=== PATIENT | female | born 1995 | race Caucasian/White ===

== ENCOUNTER → 2024-09-11 12:25 | Outpatient (REF) | payer BC, SELFPAY | LOC: CPAP 12:25 | PROVIDERS: ATTENDING PHYSICIAN Nurse Practitioner Family | DX: Z34.90 Encounter for supervision of normal pregnancy, unspecified, unspecified trimester (principal); Z11.3 Encounter for screening for infections with a predominantly sexual mode of transmission | CPT/HCPCS: 87491; 87591 ==

== ENCOUNTER → 2024-09-16 10:05 | Outpatient (REF) | payer BC, SELFPAY ==
[2024-09-16 11:06] LABS: % Basophils 0.5 % (0-2); % Eosinophils 0.6 % (0-6); % Immature Granulocytes 0.4 % (0-0.5); % Lymphocytes 20.5 % (20.5-51.1); % Monocytes 5.8 % (1.7-9.3); % Neutrophils 72.2 % (42.2-75.2); Absolute Basophils 0.1 10^3/uL (0-0.2); Absolute Eosinophils 0.1 10^3/uL (0-0.7); Absolute Lymphocytes 2.3 10^3/uL (1.2-3.4); Absolute Monocytes 0.7 10^3/uL (0.1-0.6); Hematocrit 34.6 % (37.0-47.0); Mean Corp Hgb Conc. 34.7 g/dL (33.0-37.0); Mean Corpuscular Hgb 28.8 pg (27.0-31.0); Mean Platelet Volume 11.6 fL (7.4-10.4); Nucleated Red Blood Cells % 0 %; Platelet Count 205 10^3/uL (130-400); Red Blood Cell Count 4.17 10^6/uL (4.20-5.40); Red Cell Dist. Width 13.6 % (11.5-14.5); White Blood Cell Count 11.1 10^3/uL (4.8-10.8)
[2024-09-16 11:08] LABS: Urine Albumin 1+ (Neg - Trace); Urine Bilirubin Negative (Negative); Urine Character Clear (Clear); Urine Color Yellow; Urine Glucose Negative (Negative); Urine Ketone Negative (Negative); Urine Leukocyte Negative (Negative); Urine Nitrite Negative (Negative); Urine Occult Blood Negative (Negative); Urine Specific Gravity 1.015 (<1.030); Urine Urobilinogen Negative (Neg - 1+)
[2024-09-16 12:08] LABS: Urine Bacteria Few (Negative); Urine Red Blood Cell 0-2 /HPF (0-2); Urine White Cell 0-2 /HPF (0-5)
[2024-09-16 12:24] LABS: TSH Reflex To Free T4 4.82 uIU/ml (0.47-4.68)
[2024-09-16 12:55] LABS: Free T4 1.16 ng/dl (0.78-2.19)
[2024-09-16 13:37] LABS: HIV Combo Negative (Negative)
[2024-09-16 14:21] LABS: Hepatitis B Surface Antigen Negative (Negative)
[2024-09-16 14:39] LABS: Hepatitis B Core Ab, Total Negative (Negative); Hepatitis B Surface Antibody Negative; Hepatitis C Antibody Negative (Negative)
[2024-09-18 19:41] LABS: Rubella Negative
== END ==
LOC: REG 10:05
PROVIDERS: ATTENDING PHYSICIAN Nurse Practitioner Family; FAMILY PHYSICIAN Nurse Practitioner Family
DX: Z32.01 Encounter for pregnancy test, result positive (principal); Z31.430 Encounter of female for testing for genetic disease carrier status for procreative management
CPT/HCPCS: 36415; 81003; 81015; 81220; 81243; 83036; 84439; 84443; 84702; 85025; 86704; 86706; 86762; 86780; 86803; 86850; 86900; 86901; 87086; 87340; 87389

== ENCOUNTER → 2024-12-19 13:32 | Outpatient (REF) | payer BC, SELFPAY | LOC: PNTC 13:32 | PROVIDERS: ATTENDING PHYSICIAN Obstetrics & Gynecology | DX: Z34.90 Encounter for supervision of normal pregnancy, unspecified, unspecified trimester (principal) | CPT/HCPCS: 76805; 76817 ==

== ENCOUNTER → 2025-01-05 17:45 | Outpatient (REF) | payer BC, SELFPAY | LOC: CLAB 17:45 | PROVIDERS: ATTENDING PHYSICIAN Nurse Practitioner Family | DX: R79.89 Other specified abnormal findings of blood chemistry (principal) | CPT/HCPCS: 36415; 84443 ==

== ENCOUNTER → 2025-01-16 10:39 | Outpatient (REF) | payer BC, SELFPAY ==
[2025-01-16 12:02] LABS: Hematocrit 33.6 % (37.0-47.0); Hemoglobin 11.0 g/dL (12.0-16.0); Mean Corp Hgb Conc. 32.7 g/dL (33.0-37.0); Mean Corpuscular Volume 84.0 fL (81.0-99.0); Nucleated Red Blood Cells % 0 %; Platelet Count 250 10^3/uL (130-400); Red Cell Dist. Width 14.6 % (11.5-14.5)
[2025-01-16 12:16] LABS: 1 Hour after 50gm 97 mg/dl
== END ==
LOC: REG 10:39
PROVIDERS: ATTENDING PHYSICIAN Obstetrics & Gynecology; FAMILY PHYSICIAN Nurse Practitioner Family
DX: Z34.93 Encounter for supervision of normal pregnancy, unspecified, third trimester (principal)
CPT/HCPCS: 36415; 82950; 85025; 86780

== ENCOUNTER → 2025-02-13 08:28 | Outpatient (REF) | payer BC, SELFPAY | LOC: PNTC 08:28 | PROVIDERS: ATTENDING PHYSICIAN Student in an Organized Health Care Education/Training Program | DX: Z34.90 Encounter for supervision of normal pregnancy, unspecified, unspecified trimester (principal) | CPT/HCPCS: 36415; 86850; 86900; 86901; 96372; J2790 ==

== ENCOUNTER → 2025-03-13 11:23 | Outpatient (REF) | payer BC, SELFPAY | LOC: PNTC 11:23 | PROVIDERS: ATTENDING PHYSICIAN Student in an Organized Health Care Education/Training Program | DX: Z34.90 Encounter for supervision of normal pregnancy, unspecified, unspecified trimester (principal); E03.1 Congenital hypothyroidism without goiter | CPT/HCPCS: 76816 ==

== ENCOUNTER → 2025-04-04 17:48 | Outpatient (REF) | payer BC, SELFPAY ==
[2025-04-04 18:28] LABS: Hematocrit 32.1 % (37.0-47.0); Hemoglobin 9.9 g/dL (12.0-16.0); Mean Corp Hgb Conc. 30.8 g/dL (33.0-37.0); Mean Corpuscular Volume 85.8 fL (81.0-99.0); Platelet Count 217 10^3/uL (130-400); Red Cell Dist. Width 14.5 % (11.5-14.5)
[2025-04-04 18:39] LABS: ALT (SGPT) 22 U/L (0-35); AST (SGOT) 26 U/L (14-36); Albumin 3.6 g/dl (3.5-5.0); Alkaline Phosphatase 111 U/L (38-126); Blood Urea Nitrogen 8 mg/dl (7-17); Calcium 8.6 mg/dl (8.4-10.2); Carbon Dioxide 25 mmol/L (22-30); Chloride 104 mmol/L (98-107); Glucose 75 mg/dl (70-99); Potassium 3.9 mmol/L (3.5-5.1); Sodium 132 mmol/L (135-145); Total Protein 7.1 g/dl (6.3-8.2); eGFR > 60.00
[2025-04-04 19:01] LABS: Urine Character Clear (Clear)
[2025-04-04 19:14] LABS: Ferritin 5.8 ng/ml (6.24-137); Urine Red Blood Cell 0-2 /HPF (0-2); Urine Squamous Cell >30 /LPF (Few); Urine White Cell 21-25 /HPF (0-5)
[2025-04-05 09:55] LABS: Glycohemoglobin (HgbA1c) 5.2 % (4.0-5.9)
== END ==
LOC: CLAB 17:48
PROVIDERS: ATTENDING PHYSICIAN Nurse Practitioner Family
DX: Z00.00 Encounter for general adult medical examination without abnormal findings (principal); Z34.93 Encounter for supervision of normal pregnancy, unspecified, third trimester
CPT/HCPCS: 36415; 80053; 81003; 81015; 82728; 82985; 83036; 85027

== ENCOUNTER → 2025-04-10 08:38 | Outpatient (REF) | payer BC, SELFPAY | LOC: CLAB 08:38 | PROVIDERS: ATTENDING PHYSICIAN Obstetrics & Gynecology | DX: Z36.85 Encounter for antenatal screening for Streptococcus B (principal); Z34.90 Encounter for supervision of normal pregnancy, unspecified, unspecified trimester | CPT/HCPCS: 87070 ==

== ENCOUNTER 2025-04-19 13:37 | Outpatient (RCR) | payer BC, OTHER, SELFPAY ==
[2025-04-12 13:45] VITALS: BP 143/80
[2025-04-12] MEDS: VENOFER 110 MG IV (13:54)
[2025-04-12 15:00] VITALS: BP 130/69
[2025-04-19 13:45] VITALS: BP 119/73
[2025-04-19] MEDS: VENOFER 110 MG IV (13:59)
[2025-04-19 15:02] VITALS: BP 128/73
== END 2025-04-29 23:59 | disposition home or self-care (01) ==
LOC: OID 13:37
PROVIDERS: ATTENDING PHYSICIAN Nurse Practitioner Family
DX: D50.8 Other iron deficiency anemias (principal)
CPT/HCPCS: 96365; J1756

== ENCOUNTER 2025-04-24 10:39 | Inpatient (IN) | payer BC, OTHER, SELFPAY ==
[2025-04-24 10:41] VITALS: BMI 31.7
[2025-04-24 10:50] LABS: Hematocrit 33.7 % (37.0-47.0); Hemoglobin 11.2 g/dL (12.0-16.0); Mean Corp Hgb Conc. 33.2 g/dL (33.0-37.0); Mean Corpuscular Volume 79.9 fL (81.0-99.0); Platelet Count 217 10^3/uL (130-400); Red Cell Dist. Width 18.1 % (11.5-14.5)
[2025-04-24] MEDS: ANCEF 10 IV (10:54)
[2025-04-24] MEDS: TYLENOL 975 MG PO (10:54)
[2025-04-24] MEDS: BICITRA 30 ML PO (10:54)
[2025-04-24 11:16] VITALS: BP 140/57
[2025-04-24] MEDS: METHERGINE INJECTION 0.2 MG IM (13:59)
[2025-04-24] MEDS: CYTOTEC 800 MCG RECTAL (14:00)
[2025-04-24 14:28] LABS: Hematocrit 31.3 % (37.0-47.0); Hemoglobin 10.0 g/dL (12.0-16.0); Platelet Count 210 10^3/uL (130-400)
[2025-04-24 14:41] LABS: INR 1.00; PT 13.5 Sec (11.4-14.6)
[2025-04-24 14:42] LABS: APTT 24.5 Sec (23.4-35.0); Fibrinogen 340 MG/DL (199-459)
[2025-04-24] MEDS: TORADOL IV ×2 (15:27→21:00)
[2025-04-24] MEDS: COLACE 100 MG PO (20:20)
[2025-04-25] MEDS: TYLENOL 650 MG PO ×3 (00:37→19:51)
[2025-04-25] MEDS: TORADOL 15 MG IV ×2 (03:08→08:49)
[2025-04-25] MEDS: FLUSH (NSS) 3 FLUSH IV (03:09)
[2025-04-25] MEDS: SYNTHROID 50 MCG PO (06:04)
[2025-04-25 07:17] LABS: Hematocrit 22.0 % (37.0-47.0); Hemoglobin 7.3 g/dL (12.0-16.0); Mean Corp Hgb Conc. 33.2 g/dL (33.0-37.0); Mean Corpuscular Volume 80.3 fL (81.0-99.0); Platelet Count 159 10^3/uL (130-400); Red Cell Dist. Width 18.5 % (11.5-14.5)
[2025-04-25] MEDS: PRENATAL PLUS 1 TABLET PO (08:12)
[2025-04-25] MEDS: COLACE 100 MG PO ×2 (08:12→19:50)
[2025-04-25] MEDS: FEOSOL 325 MG PO ×2 (08:49→19:50)
[2025-04-25] MEDS: MYLICON 80 MG PO (14:13)
--- NOTE | 2025-04-25 16:02 | W.PN.ANS.POP ---
Anesthesia Post Operative
- Anesthesia Post Op Note
Vital Signs Stable-See Nursing Note: Yes
Airway Patent: Yes
Adequate Pain Control: Yes
Change in Mental Status: No
Current Postoperative Nausea & Vomiting: No
Anesthesia Complications: No
General Anesthetic Recall: No
Unplanned Admission: No
Post Op Hydration Adequate: Yes
[2025-04-25] MEDS: MOTRIN 600 MG PO (19:50)
[2025-04-26] MEDS: MOTRIN 600 MG PO ×4 (03:27→19:53)
[2025-04-26] MEDS: TYLENOL 650 MG PO (03:28)
[2025-04-26] MEDS: SYNTHROID 50 MCG PO (05:46)
[2025-04-26] MEDS: FEOSOL 325 MG PO ×2 (08:49→19:42)
[2025-04-26] MEDS: COLACE 100 MG PO ×2 (08:49→19:42)
[2025-04-26] MEDS: PRENATAL PLUS 1 TABLET PO (08:49)
[2025-04-26] MEDS: FERRLECIT 110 MG IV (13:48)
[2025-04-27] MEDS: MOTRIN 600 MG PO ×2 (03:58→09:14)
[2025-04-27] MEDS: SYNTHROID 50 MCG PO (05:00)
[2025-04-27] MEDS: COLACE 100 MG PO (09:14)
[2025-04-27] MEDS: FEOSOL 325 MG PO (09:14)
--- NOTE | 2025-04-27 10:10 | W.DS.TRANS ---
DC Summary - Furniture [employer]
-
Discharge Instructions:
Discharge Diagnosis/Procedures primary cs breech
Diet No restrictions
Instructions:
Stand-Alone Forms: LDRP Delivery
Changes to Home Medications: No
Discharge Medications:
DC Medications w/original date entered in [employer]
1 unit PO DAILY 04/12/25
levothyroxine 50 mcg tablet 50 mcg PO DAILY 04/12/25
ibuprofen 600 mg tablet 600 mg PO [id number] PRN cramps #90 tabs 04/27/25
Home Medication Changes
Pending Results: No
Total time spent discharging patient (in min): 15
[2025-04-27] MEDS: M-M-R II 0.5 ML SC (10:28)
[2025-04-27] MEDS: PRENATAL PLUS PO (10:28)
[2025-04-27 16:28] LABS: Syphilis/T. pallidum Ab Reflex Negative (Negative)
== END 2025-04-27 11:16 | disposition home or self-care (01) | DRG 788 ==
LOC: LDRP 10:39
PROVIDERS: ADMITTING PHYSICIAN Obstetrics & Gynecology
PROC: 10D00Z1 Extraction of Products of Conception, Low, Open Approach (ICD-10-PCS; 2025-04-24)
DX: O32.8XX0 Maternal care for other malpresentation of fetus, not applicable or unspecified (principal); Z3A.38 38 weeks gestation of pregnancy; Z37.0 Single live birth; Z67.91 Unspecified blood type, Rh negative
CPT/HCPCS: 85014; 85018; 85027; 85049; 85384; 85610; 85730; 86780; 86850; 86870; 86900; 86901; 90707; J2916